=== PATIENT | female | born 1950 | race Caucasian/White ===

== ENCOUNTER 2024-12-09 13:04 | Inpatient (IN) ==
[2024-12-09 13:48] LABS: Basophils # (auto) 0.03 K/uL (0.00-0.20); Basophils % (auto) 0.5 %; Eosinophils # (auto) 0.04 K/uL (0.00-0.50); Eosinophils % (auto) 0.6 %; Hemoglobin 11.5 g/dl (12.0-16.0); Immature Granulocytes # (auto) 0.03 K/uL (0.01-0.20); Immature Granulocytes % (auto) 0.5 %; Lymphocytes # (auto) 2.37 K/uL (1.20-3.40); Mean Corpuscular Hemoglobin 31.9 pg (25.0-34.0); Mean Corpuscular Hgb Conc 33.8 g/dL (32.0-36.0); Mean Corpuscular Volume 94.2 fL (80.0-100.0); Mean Platelet Volume 9.8 fL (9.4-12.4); Monocytes # (auto) 0.43 K/uL (0.11-0.59); Monocytes % (auto) 6.7 %; Neutrophils % (auto) 54.7 %; Platelet Count 244 K/uL (130-400); RDW Coefficient of Variation 12.8 % (11.5-14.5); RDW Standard Deviation 44.2 fL (36.4-46.3); Red Blood Count 3.61 M/uL (4.20-5.40)
[2024-12-09 13:49] LABS: iSTAT Creatinine 1.1 mg/dl (0.6-1.3); iSTAT Hemoglobin 10.9 g/dl (12.0-16.0); iSTAT Ionized Calcium 1.21 mmol/l (1.12-1.32); iSTAT Potassium 3.6 mmol/L (3.3-5.0)
[2024-12-09] MEDS: OPTIRAY 320 125ml IV ONE (13:56)
--- NOTE | 2024-12-09 13:56 | XRay Report ---
XR chest 1V portable CLINICAL HISTORY: Chest pain, nonspecific COMPARISON STUDY: 06/04/2023 FINDINGS: Stable mild cardiomegaly without pulmonary vascular congestion. Stable mild ectasia of the aortic knob. Inspiration is shallow. No effusion, consolidation, or pneumothorax. No acute osseous fi nding seen. IMPRESSION: No acute findings. ACT 112: Negative or not required by law. Electronically signed by: Gary Lim M.D. 12/09/2024 1:55 PM
[2024-12-09] MEDS: fentaNYL citrate PF 100 MCG/2 ML VIAL IV STA (14:04)
[2024-12-09 14:05] LABS: Alanine Aminotransferase 24 U/L (7-52); Albumin Globulin Ratio 1.7 (0.9-2); Alkaline Phosphatase 82 U/L (34-104); Anion Gap 9 (3-11); Aspartate Aminotransferase 25 U/L (13-39); BUN Creatinine Ratio 16.1 (10-20); Bilirubin,Total 1.1 mg/dl (0.2-1.0); Blood Urea Nitrogen 18 mg/dl (6-23); Calcium 9.1 mg/dl (8.6-10.3); Carbon Dioxide 26 mmol/L (21-32); Chloride 106 mmol/L (98-107); Globulin 2.4 gm/dl (2.5-4.0); Glucose 159 mg/dl (70-99(Fasting)); Lipase 21 U/L (11-82); Potassium 3.7 mmol/L (3.5-5.1); Sodium 141 mmol/L (136-145); Total Protein 6.4 gm/dl (6.0-8.3)
--- NOTE | 2024-12-09 14:06 | Electrocardiogram Report ---
Test Reason : Blood Pressure : */* mmHG Vent. Rate : 64 BPM Atrial Rate : 64 BPM P-R Int : 170 ms QRS Dur : 68 ms QT Int : 424 ms P-R-T Axes : 57 33 60 degrees QTcB Int : 437 ms Normal sinus rhythm Normal ECG When compared with ECG of 19-Oct-2023 11:28, Premature atrial complexes are no longer Present Criteria for Inferior infarct are no longer Present Questionable change in initial forces of Septal leads Confirmed by Johnnie Mitchell ([id number]) on 12/09/2024 2:06:13 PM Referred By: Confirmed By: Johnnie Mitchell
[2024-12-09 14:10] LABS: Troponin I High Sensitivity 6.8 pg/ml (0-14)
--- NOTE | 2024-12-09 14:26 | CT Scan Report ---
CT angio chest dissec wo/w con, CT angio abd pelvis wo/w con CLINICAL HISTORY: dissection, lower chest/upper abd pain TECHNIQUE: CT angiography of the chest, abdomen, and pelvis before and after 112 Optiray IV. COMPARISON STUDY: None FINDINGS: Vascular findings: There is increased density in the aortic wall extending from the aortic valve to t he midabdominal aorta consistent with acute intramural hemorrhage/dissection. There is a small intima l tear at the anterior aspect of the ascending thoracic aorta series 8 image 22. No other dissection flap seen. No significant aortic luminal narrowing. There is a dense moderate pericardial effusion co nsistent with hemorrhage dissecting into the pericardium. Aortic root measures 4 cm diameter. Ascendi ng thoracic aorta measures 4.1 cm diameter proximal descending thoracic aorta measures 3.1 cm diamete r. Aorta at the hiatus measures 2.5 cm diameter. Abdominal aorta measures 2 cm in maximal diameter. V isualized great vessels are widely patent. There is mild narrowing at the origin of the celiac artery . There is moderate narrowing origin of the superior mesenteric artery. Inferior mesenteric artery is patent. Bilateral renal arteries are patent. Visualized arterial outflow shows no significant narrow ing. CHEST: There is mild dependent atelectasis or scarring in the lung bases. There is no other pulmonary consolidation or pleural effusion. No pneumothorax. No enlarged adenopathy. There are moderate coron ashley artery calcifications. ABDOMEN: Liver, gallbladder, spleen, pancreas, and adrenal glands are unremarkable. Kidneys show no h ydronephrosis. There is a small cyst superior left kidney. Pelvis: Uterus and adnexa are grossly unremarkable. Urinary bladder is nondistended. There is moderat e retained stool. No bowel inflammation or obstruction. No free fluid, free air, or abscess. Osseous structures: There is mild scoliosis. There are diffuse degenerative changes at the thoracolum bar spine. There are moderate degenerative changes at the hips. IMPRESSION: 1. 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 Small intimal tear at the anterior aspect ascending thoracic aorta. No other dissection flap or significant aortic luminal narrowing seen. Urgent vascular surgery consultation is recommended. 2. Hypodensity moderate pericardial effusion consistent with hemorrhage dissecting into the pericardi um. 3. Otherwise as described. ACT 112: Positive. There are findings on this exam that require communication between the performing entity and the patient following Patient Test Result Information Act ([place] Act 112) guidelines. Electronically signed by: Gary Lim M.D. 12/09/2024 2:28 PM
[2024-12-09] MEDS: HYDROmorphone INJ 0.5 MG/0.5 ML SYR ONE ×2 (14:47)
[2024-12-09] MEDS: HYDROmorphone INJ 1 MG/ML SYRINGE IV STA (14:47)
[2024-12-09] MEDS ORDERED: STAT IV Infusion **Titration per Protocol STA (14:47)
[2024-12-09] MEDS ORDERED: HYDROmorphone INJ 0.5 MG/0.5 ML SYR IV PRN (14:51)
[2024-12-09] MEDS: HYDROmorphone 100 MG/100 ML BAG IV SCH (15:00)
[2024-12-09] MEDS: HYDROmorphone BOLUS from BAG IV PRN ×2 (15:05→16:14)
[2024-12-09 15:17] LABS: Adenovirus PCR Not Detected (NotDetected); Bordetella parapertussis PCR Not Detected (NotDetected); Bordetella pertussis PCR Not Detected (NotDetected); Chlamydia pneumoniae PCR Not Detected (NotDetected); Coronavirus 229E PCR Not Detected (NotDetected); Coronavirus CoV-2 (COVID19)PCR Not Detected (NotDetected); Coronavirus HKU1 PCR Not Detected (NotDetected); Coronavirus NL63 PCR Not Detected (NotDetected); Coronavirus OC43PCR Not Detected (NotDetected); Human Metapneumovirus PCR Not Detected (NotDetected); Influenza A PCR Not Detected (NotDetected); Influenza B PCR Not Detected (NotDetected); Mycoplasma pneumoniae PCR Not Detected (NotDetected); Parainfluenza Virus 1 PCR Not Detected (NotDetected); Parainfluenza Virus 2 PCR Not Detected (NotDetected); Parainfluenza Virus 3 PCR Not Detected (NotDetected); Parainfluenza Virus 4 PCR Not Detected (NotDetected); Respiratory Syncytial VirusPCR Not Detected (NotDetected); Rhinovirus/Enterovirus PCR Not Detected (NotDetected)
--- NOTE | 2024-12-09 15:20 | Emergency Department Note ---
Impression & Plan Ascending aortic dissection, Comfort measures only status ED Provider Note NAME: JUAN CAMACHO AGE: 74 SEX: F : 1950 ARRIVES VIA: Ambulance INFORMANT: Patient, ED PROVIDER(S): Keegan Ortega MD CHIEF COMPLAINT: Chest pain, back pain HPI: This is 72-year-old female presenting for chest and back pain. Patient notes that she was getting ready for PT. Her physical therapy is actually here with in addition to her . They were on her chairlift and at the top of the stairs patient had a sudden onset of chest and back pain. She arrives here pale and diaphoretic. She reports 10/10 pain in her chest and back she points to lower chest/upper abdomen. She reports no previous issues with aorta, blood clots. She does have ALS. ROS: See above HPI for pertinent positives & negatives. A total of 10 systems reviewed and were otherwise negative. PAST MEDICAL HISTORY: See Below PAST SURGICAL HISTORY: See Below FAMILY HISTORY: See Below SOCIAL HISTORY: See Below HOME MEDICATIONS: See Below ALLERGIES: See Below VITALS: See Below PHYSICAL EXAMINATION: General: Pale, ashen, diaphoretic, in extremis due to pain Head: Normocephalic and atraumatic Eyes: Normal inspection, extraocular muscles intact Ear, nose, throat: Normal external exam Neck: Normal range of motion Respiratory: lungs clear to auscultation bilaterally Cardiovascular: Regular rate/rhythm, no murmur GI: soft, nontender, no guarding or rebound Extremities: nontender Neuro: The patient awake and alert, appropriately conversive, no focal deficits, symmetric faces Skin: Warm, dry, and intact MEDICAL DECISION MAKING: This is a 74-year-old female with history of ALS presents chest/back pain. With patient being currently diaphoretic, pale, hypotensive, consider dissection, PE, ACS -ECG independently interpreted by me with normal sinus rhythm, rate of 64, normal axis, normal [place], normal QRS, normal QTc, no ST segment elevations consistent with STEMI criteria -Chest Xray independently interpreted by me showing widening mediastinum compared to previous, no focal opacity pleural effusion or pneumothorax -Due to the widened mediastinum as well as now excruciating chest/back pain that is 10 and 10, consider dissection. -Bedside echocardiogram performed by myself does reveal pericardial effusion, small to moderate; otherwise normal EF -Patient ordered for CTA of the chest and abdomen. This does return as likely dissection upon my independent interpretation. This appears to be an ascending aortic aneurysm. There appears to be fluid around the heart. -Official radiology report does reveal dissection. -I discussed care with family and discussed where patient should go for cardiothoracic surgery. They are comfortable with [facility] as the closest capable facility. -Call made to [facility] cardiothoracic surgery for this ascending dissection/pericardial effusion -Patient does request I come back to the room stating that she does not want any procedures. I did advise her that no procedure would likely mean as the ultimate outcome. Patient is comfortable with this and does not want CPR, intubation or a large procedure. She wants to be comfort measures at this time. -Patient request comfort measures, will start Dilaudid. Will give her 1 mg for acute pain as well as Dilaudid drip. -Discussed care with Dr. Angel who will continue comfort measures admit the patient. Differential diagnosis: Aortic dissection, PE, ACS, pericardial effusion, cardiac tamponade, Independent History obtained from: and physical therapist Diagnostics interpreted by me: ECG: See above Cardiac Monitoring: An order was placed for continuous cardiac monitoring. The monitor shows a rate of 70 with sinus rhythm. Critical Care Note: I have personally spent 45 minutes of critical care time in the direct management of this patient. This includes bedside care, interpretation of diagnostic studies, and testing, discussion with consultants, patient, and family members, and other required patient management activities. This 45 minutes is in excess of all separately billable procedures. 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 Left ventricular hypertrophy Valvular heart disease Aortic regurgitation Dilated aortic root Elevated troponin Dyslipidemia (Acute) Reactive hypertension (Acute) Subclinical hypothyroidism (Acute) "TSH is high at times" per pt, no meds Vitamin D deficiency (Acute) Surgical History History of right breast biopsy benign History of appendectomy History of wisdom tooth extraction Family History Uncle Family history of diabetes mellitus Other No family history of adverse response to anesthesia Denies family history of Ovarian cancer Prostate cancer Myocardial infarction Breast cancer Colorectal cancer Social History Smoking Status: Never smoker Second Hand Exposure: No; Do You Dip or Chew Tobacco: No; Hx Alcohol Use: No Hx Substance Use: No Preferred Language: Honduran Communication Ability: Effective Visual Impairment: No Limitations Hearing Ability: Normal Submarine Operator Required: No Beliefs That Will Affect Care: None marital status: Current Living Situation: Family current occupational status: retired Other Information That Helps Us Care for You: No Feels Safe at Home: Yes Safety Concerns: Feels Safe At This Time Childhood Exposure to Second-Hand Smoke: Yes Diet: regular Diet Comment: regular Dental Care, Regularly: Yes Physical Activity Frequency: Does not Exercise Physical Activity Frequency Comment: geometry tutor Seatbelt Use: always Sunscreen Use: Yes Assistive Devices: Hospital Bed Allergies Allergies Allergy/AdvReac Type Severity Reaction Status Date / Time No Known Drug Allergies Allergy Verified 07/23/24 11:18 Home Meds Home Medications Medication Instructions Recorded Confirmed cholecalciferol (vitamin D3) 50 2,000 unit PO 3XWK 05/23/19 07/23/24 mcg (2,000 unit) tablet (Vitamin D3) ibuprofen 200 mg tablet 100 mg PO DAILY PRN Pain 05/23/19 07/23/24 omega 3 350 mg-dha 235 mg-epa 90 1 cap PO 3XWK 05/23/19 07/23/24 mg-fish oil 597 mg capsule,delay rel ([place]-3) calcium carbonate (Antacid 200 mg PO BID 01/02/23 07/23/24 (calcium carbonate)) coQ10 (ubiquinol) 100 mg capsule 100 mg PO DAILY 07/23/24 07/23/24 (Qunol Donny CoQ10) magnesium 250 mg tablet 250 mg PO .[id number] 07/23/24 07/23/24 Previous Rx's Medication Instructions Recorded miscellaneous medical supply #1 ea 01/04/23 valacyclovir 1 gram tablet 1,000 mg PO TID 7 days #21 tabs 08/05/24 levothyroxine 75 mcg tablet 75 mcg PO DAILY #30 tabs 11/18/24 Results & Data (ED) Vital Signs Vital Signs - 24 hr 12/09/24 13:33 12/09/24 13:42 12/09/24 14:39 Temperature Source Oral Pulse Rate 64 70 Pulse Rate [Apical] 65 Pulse Rate from SpO2 Sensor 69 Pulse Rhythm Regular Pulse Rhythm [Apical] Regular Respiratory Rate 20 19 16 Respiratory Effort / Characteristics Short of Breath Spontaneous Short of Breath Respiratory Depth Normal Normal Blood Pressure 88/67 L 92/67 L Blood Pressure [Right Arm] 97/51 L Blood Pressure Mean 74 75 Blood Pressure Mean [Right Arm] 66 Blood Pressure Position Lying Blood Pressure Position [Right Arm] Lying Pulse Oximetry 97 92 95 Oxygen Delivery Method Room Air Room Air Sepsis New/Unexplained Change in Mental Status No Sepsis Action Taken by Nursing No Action Required 12/09/24 14:45 12/09/24 14:51 12/09/24 14:52 Temperature Source Pulse Rate 68 69 Pulse Rate [Apical] Pulse Rate from SpO2 Sensor Pulse Rhythm Pulse Rhythm [Apical] Respiratory Rate 24 Respiratory Effort / Characteristics Respiratory Depth Blood Pressure 100/69 95/68 L Blood Pressure [Right Arm] Blood Pressure Mean 74 77 Blood Pressure Mean [Right Arm] Blood Pressure Position Blood Pressure Position [Right Arm] Pulse Oximetry Oxygen Delivery Method Sepsis New/Unexplained Change in Mental Status Sepsis Action Taken by Nursing 12/09/24 14:55 12/09/24 15:00 12/09/24 15:12 Temperature Source Pulse Rate 73 Pulse Rate [Apical] Pulse Rate from SpO2 Sensor Pulse Rhythm Pulse Rhythm [Apical] Respiratory Rate 20 Respiratory Effort / Characteristics Respiratory Depth Blood Pressure 96/77 L 96/72 L 97/70 L Blood Pressure [Right Arm] Blood Pressure Mean 80 79 79 Blood Pressure Mean [Right Arm] Blood Pressure Position Blood Pressure Position [Right Arm] Pulse Oximetry Oxygen Delivery Method Sepsis New/Unexplained Change in Mental Status Sepsis Action Taken by Nursing 12/09/24 15:24 12/09/24 15:30 Temperature Source Pulse Rate 72 73 Pulse Rate [Apical] Pulse Rate from SpO2 Sensor Pulse Rhythm Pulse Rhythm [Apical] Respiratory Rate 14 30 H Respiratory Effort / Characteristics Respiratory Depth Blood Pressure 88/69 L 88/69 L Blood Pressure [Right Arm] Blood Pressure Mean 75 75 Blood Pressure Mean [Right Arm] Blood Pressure Position Blood Pressure Position [Right Arm] Pulse Oximetry Oxygen Delivery Method Sepsis New/Unexplained Change in Mental Status Sepsis Action Taken by Nursing Laboratory Data 12/09/24 13:29 12/09/24 13:29 Lab Results 12/09/24 12/09/24 12/09/24 Range/Units 13:29 13:37 14:20 WBC 6.40 (4.8-10.8) K/ul RBC 3.61 L (4.20-5.40) M/uL Hgb 11.5 L (12.0-16.0) g/dl POC Hgb 10.9 L (12.0-16.0) g/dl Hct 34.0 L (37.0-47.0) % POC Hct 32 L (37-47) % MCV 94.2 (80.0-100.0) fL MCH 31.9 (25.0-34.0) pg MCHC 33.8 (32.0-36.0) g/dL RDW Std Deviation 44.2 (36.4-46.3) fL RDW Coeff of Imtiaz 12.8 (11.5-14.5) % Plt Count 244 (130-400) K/uL MPV 9.8 (9.4-12.4) fL Immature Gran % (Auto) 0.5 % Neut % (Auto) 54.7 % Lymph % (Auto) 37.0 % Bibb % (Auto) 6.7 % Eos % (Auto) 0.6 % Baso % (Auto) 0.5 % Neut # (Auto) 3.50 (1.40-6.50) K/uL Lymph # (Auto) 2.37 (1.20-3.40) K/uL Bibb # (Auto) 0.43 (0.11-0.59) K/uL Eos # (Auto) 0.04 (0.00-0.50) K/uL Baso # (Auto) 0.03 (0.00-0.20) K/uL Immature Gran # (Auto) 0.03 (0.01-0.20) K/uL POC Sodium 141 (135-144) mmol/L Sodium 141 (136-145) mmol/L POC Potassium 3.6 (3.3-5.0) mmol/L Potassium 3.7 (3.5-5.1) mmol/L POC Chloride 106 (101-112) mmol/L Chloride 106 (98-107) mmol/L Carbon Dioxide 26 (21-32) mmol/L POC Total CO2 23 L (24-31) mmol/L Anion Gap 9 (3-11) POC Anion Gap 17.0 (16-25) mmol/L POC BUN 18 (7-18) mg/dl BUN 18 (6-23) mg/dl Creatinine 1.12 (0.6-1.2) mg/dl POC Creatinine 1.1 (0.6-1.3) mg/dl Est Cr Clr Drug Dosing Not Reportable eGFR 52.25 BUN/Creatinine Ratio 16.1 (10-20) Glucose 159 H (70-99(Fasting)) mg/dl POC Glucose (other) 151 H (70-99) mg/dl Calcium 9.1 (8.6-10.3) mg/dl POC Ioniz Calcium Monika 1.21 (1.12-1.32) mmol/l Total Bilirubin 1.1 H (0.2-1.0) mg/dl AST 25 (13-39) U/L ALT 24 (7-52) U/L Alkaline Phosphatase 82 (34-104) U/L Troponin I High Sens 6.8 (0-14) pg/ml Total Protein 6.4 (6.0-8.3) gm/dl Albumin 4.0 (3.4-5.0) gm/dl Globulin 2.4 L (2.5-4.0) gm/dl Albumin/Globulin Ratio 1.7 (0.9-2) Lipase 21 (11-82) U/L Adenovirus (PCR) Not Detected (NotDetected) B. pertussis DNA (PCR) Not Detected (NotDetected) B.parapertussis DNA PCR Not Detected (NotDetected) C. pneumoniae DNA (PCR) Not Detected (NotDetected) Coronavirus OC43 (PCR) Not Detected (NotDetected) Coronavirus HKU1 (PCR) Not Detected (NotDetected) Coronavirus 229E (PCR) Not Detected (NotDetected) SARS-CoV-2 (PCR) Not Detected (NotDetected) Coronavirus NL63 (PCR) Not Detected (NotDetected) Human Metapneumovir PCR Not Detected (NotDetected) Influenza Type A (PCR) Not Detected (NotDetected) Influenza Type B (PCR) Not Detected (NotDetected) M. pneumoniae (PCR) Not Detected (NotDetected) Parainfluenza 1 (PCR) Not Detected (NotDetected) Parainfluenza 2 (PCR) Not Detected (NotDetected) Parainfluenza 3 (PCR) Not Detected (NotDetected) Parainfluenza 4 (PCR) Not Detected (NotDetected) RSV (PCR) Not Detected (NotDetected) Entero/Rhino (PCR) Not Detected (NotDetected) Administered Medications Hydromorphone HCl (Hydromorphone Bolus From Bag) 0.5 mg IV Q15M PRN PRN Reason: Comfort Care Parameters Stop: 12/23/24 14:46 Last Admin: 12/09/24 16:14 Dose: 0.5 mg Documented By: CELESTE Co-signed By: CORNELL Hydromorphone HCl (Dilaudid) 100 mg in 100 mls @ 0.5 mls/hr IV .Q96H JB; Protocol Stop: 12/23/24 14:59 Last Titration: 12/10/24 07:05 Dose: 0.5 mg/hr, 0.5 mls/hr Documented By: RAHEEM Co-signed By: KELBY Titration: 12/09/24 19:10 Dose: 0.5 mg/hr, 0.5 mls/hr Documented By: KELBY Co-signed By: IRIS Titration: 12/09/24 15:31 Dose: 0.5 mg/hr, 0.5 mls/hr Documented By: CORNELL Co-signed By: CELESTE Admin: 12/09/24 15:00 Dose: 0.2 mg/hr, 0.2 mls/hr Documented By: CELESTE Co-signed By: CORNELL Lorazepam (Lorazepam 2 Mg/1 Ml Vial) 0.5 mg IV Q4H PRN PRN Reason: Anxiety/Agitation Stop: 01/08/25 16:30 Last Admin: 12/09/24 20:59 Dose: 0.5 mg Documented By: KELBY Ondansetron HCl (Ondansetron Inj 2 Mg/Ml 2 Ml Vial) 4 mg IV Q4H PRN PRN Reason: Nausea &/or Vomiting Stop: 01/08/25 16:30 Last Admin: 12/09/24 17:00 Dose: 4 mg Documented By: CORNELL Discontinued Medications Fentanyl Citrate (Fentanyl Citrate Pf 100 Mcg/2 Ml Vial) 50 mcg IV NOW STA Stop: 12/09/24 13:48 Last Admin: 12/09/24 14:04 Dose: 50 mcg Documented By: CELESTE Hydromorphone HCl (Hydromorphone Inj 0.5 Mg/0.5 Ml Syr) Confirm Administered Dose 0.5 mg .ROUTE .STK-MED ONE Stop: 12/09/24 14:43 Last Admin: 12/09/24 14:47 Dose: Not Given Documented By: CORNELL Hydromorphone HCl (Hydromorphone Inj 0.5 Mg/0.5 Ml Syr) Confirm Administered Dose 0.5 mg .ROUTE .STK-MED ONE Stop: 12/09/24 14:44 Last Admin: 12/09/24 14:47 Dose: Not Given Documented By: CORNELL Hydromorphone HCl (Hydromorphone Inj 1 Mg/Ml Syringe) 1 mg IV NOW STA Stop: 12/09/24 14:47 Last Admin: 12/09/24 14:47 Dose: 1 mg Documented By: CORNELL Hydromorphone HCl (Hydromorphone Bolus From Bag) 0.2 mg IV Q15M PRN PRN Reason: Comfort Care Parameters Stop: 12/23/24 14:46 Last Admin: 12/09/24 15:21 Dose: 0.2 mg Documented By: CORNELL Co-signed By: BLAINE Admin: 12/09/24 15:05 Dose: 0.2 mg Documented By: CORNELL Co-signed By: CELESTE Ioversol (Optiray 320 125ml) 112 ml IV ONCE ONE Stop: 12/09/24 13:57 Last Admin: 12/09/24 13:56 Dose: 112 ml Documented By: KATHRINE Imaging Data Radiologist's Impression: Chest X-Ray 12/09/24 13:29 XR chest 1V portable CLINICAL HISTORY: Chest pain, nonspecific COMPARISON STUDY: 06/04/2023 FINDINGS: Stable mild cardiomegaly without pulmonary vascular congestion. Stable mild ectasia of the aortic knob. Inspiration is shallow. No effusion, consolidation, or pneumothorax. No acute osseous finding seen. IMPRESSION: No acute findings. ACT 112: Negative or not required by law. Electronically signed by: Gary Lim M.D. 12/09/2024 1:55 PM Abdomen/Pelvis CTA 12/09/24 13:46 CT angio chest dissec wo/w con, CT angio abd pelvis wo/w con CLINICAL HISTORY: dissection, lower chest/upper abd pain TECHNIQUE: CT angiography of the chest, abdomen, and pelvis before and after 112 Optiray IV. COMPARISON STUDY: None FINDINGS: Vascular findings: There is increased density in the aortic wall extending from the aortic valve to the midabdominal aorta consistent with acute intramural hemorrhage/dissection. There is a small intimal tear at the anterior aspect of the ascending thoracic aorta series 8 image 22. No other dissection flap seen. No significant aortic luminal narrowing. There is a dense moderate pericardial effusion consistent with hemorrhage dissecting into the pericardium. Aortic root measures 4 cm diameter. Ascending thoracic aorta measures 4.1 cm diameter proximal descending thoracic aorta measures 3.1 cm diameter. Aorta at the hiatus measures 2.5 cm diameter. Abdominal aorta measures 2 cm in maximal diameter. Visualized great vessels are widely patent. There is mild narrowing at the origin of the celiac artery. There is moderate narrowing origin of the superior mesenteric artery. Inferior mesenteric artery is patent. Bilateral renal arteries are patent. Visualized arterial outflow shows no significant narrowing. CHEST: There is mild dependent atelectasis or scarring in the lung bases. There is no other pulmonary consolidation or pleural effusion. No pneumothorax. No enlarged adenopathy. There are moderate coronary artery calcifications. ABDOMEN: Liver, gallbladder, spleen, pancreas, and adrenal glands are unremarkable. Kidneys show no hydronephrosis. There is a small cyst superior left kidney. Pelvis: Uterus and adnexa are grossly unremarkable. Urinary bladder is nondistended. There is moderate retained stool. No bowel inflammation or obstruction. No free fluid, free air, or abscess. Osseous structures: There is mild scoliosis. There are diffuse degenerative changes at the thoracolumbar spine. There are moderate degenerative changes at the hips. IMPRESSION: 1. 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 Small intimal tear at the anterior aspect ascending thoracic aorta. No other dissection flap or significant aortic luminal narrowing seen. Urgent vascular surgery consultation is recommended. 2. Hypodensity moderate pericardial effusion consistent with hemorrhage dissecting into the pericardium. 3. Otherwise as described. ACT 112: Positive. There are findings on this exam that require communication between the performing entity and the patient following Patient Test Result Information Act ([place] Act 112) guidelines. Electronically signed by: Gary Lim M.D. 12/09/2024 2:28 PM Chest CTA 12/09/24 13:46 CT angio chest dissec wo/w con, CT angio abd pelvis wo/w con CLINICAL HISTORY: dissection, lower chest/upper abd pain TECHNIQUE: CT angiography of the chest, abdomen, and pelvis before and after 112 Optiray IV. COMPARISON STUDY: None FINDINGS: Vascular findings: There is increased density in the aortic wall extending from the aortic valve to the midabdominal aorta consistent with acute intramural hemorrhage/dissection. There is a small intimal tear at the anterior aspect of the ascending thoracic aorta series 8 image 22. No other dissection flap seen. No significant aortic luminal narrowing. There is a dense moderate pericardial effusion consistent with hemorrhage dissecting into the pericardium. Aortic root measures 4 cm diameter. Ascending thoracic aorta measures 4.1 cm diameter proximal descending thoracic aorta measures 3.1 cm diameter. Aorta at the hiatus measures 2.5 cm diameter. Abdominal aorta measures 2 cm in maximal diameter. Visualized great vessels are widely patent. There is mild narrowing at the origin of the celiac artery. There is moderate narrowing origin of the superior mesenteric artery. Inferior mesenteric artery is patent. Bilateral renal arteries are patent. Visualized arterial outflow shows no significant narrowing. CHEST: There is mild dependent atelectasis or scarring in the lung bases. There is no other pulmonary consolidation or pleural effusion. No pneumothorax. No enlarged adenopathy. There are moderate coronary artery calcifications. ABDOMEN: Liver, gallbladder, spleen, pancreas, and adrenal glands are unremarkable. Kidneys show no hydronephrosis. There is a small cyst superior left kidney. Pelvis: Uterus and adnexa are grossly unremarkable. Urinary bladder is nondistended. There is moderate retained stool. No bowel inflammation or obstruction. No free fluid, free air, or abscess. Osseous structures: There is mild scoliosis. There are diffuse degenerative changes at the thoracolumbar spine. There are moderate degenerative changes at the hips. IMPRESSION: 1. 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 Small intimal tear at the anterior aspect ascending thoracic aorta. No other dissection flap or significant aortic luminal narrowing seen. Urgent vascular surgery consultation is recommended. 2. Hypodensity moderate pericardial effusion consistent with hemorrhage dissecting into the pericardium. 3. Otherwise as described. ACT 112: Positive. There are findings on this exam that require communication between the performing entity and the patient following Patient Test Result Information Act ([place] Act 112) guidelines. Electronically signed by: Gary Lim M.D. 12/09/2024 2:28 PM Discharge Plan Visit Data Chief Complaint: Chest Pain Stated Complaint: CHEST PAIN ED Provider: Keegan Ortega Discharge Problem: Ascending aortic dissection, Comfort measures only status Patient Disposition: Admitted As Inpatient Discharge Instructions Interventions: ED Discharge Assessment Last Done: 12/09/24 16:26
--- NOTE | 2024-12-09 15:55 | History & Physical Report ---
Date of Service December 09, 2024 Assessment & Plan (1) Comfort measures only status: Plan: Ascending aortic dissection with hemorrhagic pericardial effusion - patient wished to be made comfortable at this time rather than undergo surgical treatment, I confirmed this with the patient and family at bedside Started on Dilaudid drip - severity pain still 8/10, will need to up titrate this relatively quickly for good pain relief Lorazepam for anxiety Ondansetron for nausea Glycopyrrolate first-line, hyoscyamine second line, atropine third line for secretions (2) Amyotrophic lateral sclerosis (ALS): (3) Aortic dissection: Plan VTE prophylaxis - comfort care measures only Diet - offer food and liquids as requested by the patient Disposition - admit to med/surg Admission and Anticipated Discharge Date Admission Date: December 09, 2024 History of Present Illness Chief Complaint: Chest pain Primary Care Provider: Leticia Lucero MD Susanne Tate is a 74 year old female who presents to the ER with chest pain and back pain. She was pale and diaphoretic with severity 10/10 pain on arrival to the ER. CT angiogram showed ascending dissection with intramural hemorrhage extending from the aortic valve to the mid abdominal aorta with Hypodensity moderate pericardial effusion consistent with hemorrhage dissecting into the pericardium. ER provider discussed with the patient and she declined any procedures for this given her ALS and wished to be made comfortable only at this time. On arrival in the room pain severity was still 8/10 after 1mg IV Dilaudid and fentanyl 50 mcg IV. Given the nature of her injury and ongoing severity of pain a Dilaudid drip was started. Allergies Allergy/AdvReac Type Severity Reaction Status Date / Time No Known Drug Allergies Allergy Verified 07/23/24 11:18 Home Medications Medication Instructions Recorded Confirmed Type cholecalciferol (vitamin D3) 50 2,000 unit PO 3XWK 05/23/19 07/23/24 History mcg (2,000 unit) tablet (Vitamin D3) ibuprofen 200 mg tablet 100 mg PO DAILY PRN Pain 05/23/19 07/23/24 History omega 3 350 mg-dha 235 mg-epa 90 1 cap PO 3XWK 05/23/19 07/23/24 History mg-fish oil 597 mg capsule,delay rel ([place]-3) calcium carbonate (Antacid 200 mg PO BID 01/02/23 07/23/24 History (calcium carbonate)) miscellaneous medical supply #1 ea 01/04/23 07/23/24 Rx coQ10 (ubiquinol) 100 mg capsule 100 mg PO DAILY 07/23/24 07/23/24 History (Qunol Donny CoQ10) magnesium 250 mg tablet 250 mg PO .2XWEEKLY 07/23/24 07/23/24 History valacyclovir 1 gram tablet 1,000 mg PO TID 7 days #21 tabs 08/05/24 08/05/24 Rx levothyroxine 75 mcg tablet 75 mcg PO DAILY #30 tabs 09/30/24 Rx Past Med/Surg History Problem List (Updated 12/09/24 @ 15:55 by Ruddy Angel MD) Comfort measures only status Aortic dissection Amyotrophic lateral sclerosis (ALS) Tachycardia intermittent, no nougat cutter machine, no meds Left ventricular hypertrophy Valvular heart disease Aortic regurgitation Dilated aortic root Elevated troponin Dyslipidemia (Acute) Reactive hypertension (Acute) Subclinical hypothyroidism (Acute) "TSH is high at times" per pt, no meds Vitamin D deficiency (Acute) Surgical History History of right breast biopsy benign History of appendectomy History of wisdom tooth extraction Family History Uncle Family history of diabetes mellitus Other No family history of adverse response to anesthesia Denies family history of Ovarian cancer Prostate cancer Myocardial infarction Breast cancer Colorectal cancer Social History Smoking Status: Never smoker Second Hand Exposure: No; Do You Dip or Chew Tobacco: No; Hx Alcohol Use: No Hx Substance Use: No Preferred Language: Luxembourgish Communication Ability: Effective Visual Impairment: No Limitations Hearing Ability: Normal Form Builder Required: No Beliefs That Will Affect Care: None marital status: Current Living Situation: Family current occupational status: retired Other Information That Helps Us Care for You: No Feels Safe at Home: Yes Safety Concerns: Feels Safe At This Time Childhood Exposure to Second-Hand Smoke: Yes Diet: regular Diet Comment: regular Dental Care, Regularly: Yes Physical Activity Frequency: Does not Exercise 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9 L (12.0-16.0) g/dl Hct 34.0 L (37.0-47.0) % POC Hct 32 L (37-47) % POC Total CO2 23 L (24-31) mmol/L Glucose 159 H (70-99(Fasting)) mg/dl POC Glucose (other) 151 H (70-99) mg/dl Total Bilirubin 1.1 H (0.2-1.0) mg/dl Globulin 2.4 L (2.5-4.0) gm/dl Diagnostic Findings XR chest 1V portable CLINICAL HISTORY: Chest pain, nonspecific COMPARISON STUDY: 06/04/2023 FINDINGS: Stable mild cardiomegaly without pulmonary vascular congestion. Stable mild ectasia of the aortic knob. Inspiration is shallow. No effusion, conso lidation, or pneumothorax. No acute osseous finding seen. IMPRESSION: No acute findings. CT angio chest dissec wo/w con, CT angio abd pelvis wo/w con CLINICAL HISTORY: dissection, lower chest/upper abd pain TECHNIQUE: CT angiography of the chest, abdomen, and pelvis before and after 112 Optiray IV. COMPARISON STUDY: None FINDINGS: Vascular findings: There is increased density in the aortic wall extending from the aortic valve to the midabdominal aorta consistent with acute intramural hemorrhage/dissection. There is a small intimal tear at the anterior aspect of the ascending thoracic aorta series 8 image 22. No other dissection flap seen. No significant aortic luminal narrowing. There is a dense moderate pericardial effusion consistent with hemorrhage dissecting into the pericardium. Aortic root measures 4 cm diameter. Ascending thoracic aorta measures 4.1 cm diameter proximal descending thoracic aorta measures 3.1 cm diameter. Aorta at the hiatus measures 2.5 cm diameter. Abdominal aorta measures 2 cm in maximal diameter. Visualized great vessels are widely patent. There is mild narrowing at the origin of the celiac artery. There is moderate narrowing origin of the superior mesenteric artery. Inferior mesenteric artery is patent. Bilateral renal arteries are patent. Visualized arterial outflow shows no significant narrowing. CHEST: There is mild dependent atelectasis or scarring in the lung bases. There is no other pulmonary consolidation or pleural effusion. No pneumothorax. No enlarged adenopathy. There are moderate coronary artery calcifications. ABDOMEN: Liver, gallbladder, spleen, pancreas, and adrenal glands are unremarkable. Kidneys show no hydronephrosis. There is a small cyst superior left kidney. Pelvis: Uterus and adnexa are grossly unremarkable. Urinary bladder is nondistended. There is moderate retained stool. No bowel inflammation or obstruction. No free fluid, free air, or abscess. Osseous structures: There is mild scoliosis. There are diffuse degenerative changes at the thoracolumbar spine. There are moderate degenerative changes at the hips. IMPRESSION: 1. 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 Small intimal tear at the anterior aspect ascending thoracic aorta. No other dissection flap or significant aortic luminal narrowing seen. Urgent vascular surgery consultation is recommended. 2. Hypodensity moderate pericardial effusion consistent with hemorrhage dissecting into the pericardium. 3. Otherwise as described. Medications Administered ER medications given: Fentanyl 50 mcg IV Dilaudid 1 mg IV ECG Rate (beats per minute): 64 Rhythm: normal sinus Findings: no acute ischemic change Comparison ECG Date: from (October 19, 2023) Change: the following changes noted (PACs no longer present) Code Status & VTE Plan Code Status DNR/DNI VTE Prophylaxis Plan VTE Prophylaxis will be ordered: No PG Care Time/CCT Total # of Minutes Spent Total Time Spent with Patient: Total time spent is greater than 50% in coordination of care (as documented) at patient's floor/unit and/or counseling patient: Coding Level of Care Code 75812 INT INP/OBS CARE 2/55MIN Diagnoses Comfort measures only status Z51.5 Amyotrophic lateral sclerosis (ALS) G12.21 Aortic dissection I71.00
[2024-12-09] MEDS ORDERED: HALOPERIDOL ORAL SOLN 2 MG/ML PO PRN (16:31)
[2024-12-09 16:52] VITALS: BP 92/67; PULSE 72; RESP 21; O2SAT 95
[2024-12-09] MEDS: ONDANSETRON INJ 2 MG/ML 2 ML VIAL IV PRN (17:00)
[2024-12-09] MEDS: LORazepam 2 MG/1 ML VIAL IV PRN (20:59)
--- NOTE | 2024-12-10 20:12 | Hospitalist Progress Note ---
Date of Service December 10, 2024 Assessment & Plan (1) Comfort measures only status: Plan: patient presented with ascending aortic dissection with hemorrhagic pericardial effusion - patient wished to be made comfortable rather than pursue surgical treatment at a tertiary care center initiated on Dilaudid drip at time of admission other comfort measures ordered including Lorazepam, ondansetron, etc. support given to pt's at bedside (2) Amyotrophic lateral sclerosis (ALS): Plan: progressive per now on [facility] for #3, #4 (3) Aortic dissection: Plan: presented with such also with hemorrhagic pericardial effusion (4) Hemorrhagic pericardial effusion: Plan cont comfort care pathway Admission and Anticipated Discharge Date Admission Date: December 09, 2024 Subjective patient unresponsive the entire visit except 1x she briefly opened her eyes for about 1-2 seconds irregular breathing noted pt's at bedside support given he reports they have no children but friends will be visiting today Review of Systems Review of Systems: Unobtainable due to reduced consciousness Physical Exam Physical Exam: gen - sleeping, irregular breathing neck - JVD present heart - RRR, s1 s2 lungs - CTA b/l abd - soft ext - cold feet, mottled, cap refill 4 sec or longer, pulses <1+ b/l feet Results & Data Results & Data Vital Signs (Past 12 Hours) Vital Signs O2 Del Method 12/10/24 09:32 Room Air PG Care Time/CCT Total # of Minutes Spent Total Time Spent with Patient: Total time spent is greater than 50% in coordination of care (as documented) at patient's floor/unit and/or counseling patient: Coding Level of Care Code 75263 SUB INP/OBS CARE 12/07MIN Diagnoses Comfort measures only status Z51.5 Amyotrophic lateral sclerosis (ALS) G12.21 Aortic dissection I71.00 Hemorrhagic pericardial effusion I31.2
[2024-12-10] MEDS: GLYCOPYRROLATE 0.2 MG/ML VIAL IV PRN (21:13)
[2024-12-11] MEDS: ATROPINE SULFATE 1% OP SOLN 5 ML BTL SL PRN (03:17)
[2024-12-11] MEDS: HYOSCYAMINE SULFATE 0.125 MG TAB SL PRN (04:20)
[2024-12-11] MEDS: SCOPOLAMINE 1 MG/72 HR TDSY PATCH TD ONE (14:03)
[2024-12-11] MEDS: CHECK SCOPOLAMINE PATCH PLACEMENT SCH (15:55)
--- NOTE | 2024-12-11 17:43 | Discharge Summary ---
Discharge Summary Date of Service December 11, 2024 Principal Dx & Hospital Course #1 = Principal Diagnosis (1) Ascending aortic dissection: (2) Hemorrhagic pericardial effusion: Plan cont comfort care pathway Admission HPI Per Admitting Provider Susanne Tate is a 74 year old female who presents to the ER with chest pain and back pain. She was pale and diaphoretic with severity 10/10 pain on arrival to the ER. CT angiogram showed ascending dissection with intramural hemorrhage extending from the aortic valve to the mid abdominal aorta with Hypodensity moderate pericardial effusion consistent with hemorrhage dissecting into the pericardium. ER provider discussed with the patient and she declined any procedures for this given her ALS and wished to be made comfortable only at this time. On arrival in the room pain severity was still 8/10 after 1mg IV Dilaudid and fentanyl 50 mcg IV. Given the nature of her injury and ongoing severity of p ain a Dilaudid drip was started. Discharge Plan Discharge Items Reason For Visit: AORTIC DISSECTION Follow-up/Referrals: Leticia Lucero MD [Primary Care Provider] - Medications and DC Order Prescriptions: No Action (DME) miscellaneous medical supply Misc See Rx Instructions .ROUTE .MEDSUPPLY Qty: 1 0RF Rx Instructions: As directed-grab bars x bath/shower M21.372 levothyroxine 75 mcg tablet 75 mcg PO DAILY Qty: 30 2RF calcium carbonate [Antacid (calcium carbonate)] 200 mg calcium (500 mg) tablet,chewable 200 mg PO BID valacyclovir 1 gram tablet 1,000 mg PO TID 7 Days Qty: 21 0RF magnesium 250 mg tablet 250 mg PO .2XWEEKLY coQ10 (ubiquinol) [Qunol Donny CoQ10] 100 mg capsule 100 mg PO DAILY ibuprofen 200 mg Tablet 100 mg PO DAILY PRN (Reason: Pain) cholecalciferol (vitamin D3) [Vitamin D3] 2,000 unit Tablet 2,000 unit PO 3XWK [place]-3 350 mg-235 mg- 90 mg-597 mg Capsule,Delayed Release(Dr/Ec) 1 cap PO 3XWK Admission Data Admit Date/Time: 12/09/24 15:34 Attending Provider: Ruddy White Admit Provider: Ruddy Angel Primary Care Provider: Leticia Lucero Other Providers: Ruddy Angel Hospital Stay Data Consultations 12/09/24 15:02 ED Decision to Admit Stat Diagnostic Imagining Performed 12/09/24 13:46 CTA abd pelvis wo/w con [CT angio abd pelvis wo/w con] Stat CTA chest dissec wo/w con [CT angio chest dissec wo/w con] Stat Coding Diagnoses Ascending aortic dissection I71.010 Hemorrhagic pericardial effusion I31.2
--- NOTE | 2024-12-11 17:43 | Death Pronouncement Note ---
Date of Service December 11, 2024 Pronouncement Note Admission Date December 09, 2024 Date and Time of Date of : 12/11/24 Time of : 16:58 Preliminary Cause of (1) Ascending aortic dissection: (2) Hemorrhagic pericardial effusion: Additional Data Confirmation of : no pulse, no respirations, no heart sounds and pupils fixed and dilated Pronouncement Performed By: Attending Physician Family: at bedside Attending/PCP notified?: Yes Attending physician: Ruddy White MD Was code activated?: No Autopsy requested?: No legal examiner notified?: No Organ bank notified?: Yes Coding Level of Care Code None Diagnoses Ascending aortic dissection I71.010 Hemorrhagic pericardial effusion I31.2
== END 2024-12-11 18:37 | disposition expired | DRG 951 ==
LOC: ED 13:04 → SUATTDRO 15:34 → EDINP 15:34 → 3E 16:26